=== PATIENT | female | born 1965 | race Caucasian/White ===

== ENCOUNTER 2020-12-19 16:52 | Emergency (ER) | payer OTHER, SELFPAY ==
--- NOTE | ~2020-12-19 | XR_ITS ---
EXAMINATION: RIGHT HAND CLINICAL INFORMATION: Pain and swelling COMPARISON: None TECHNIQUE: 3 views right hand FINDINGS: There is an impacted, transverse, comminuted fracture involving the distal radial metaphysis with dorsal angulation of distal fracture fragment. There is an associated fracture of the ulnar styloid. No other fractures are seen. XR/XR hand wrist RT IMPRESSION: Distal radial fracture with associated fracture of the ulnar styloid.
--- NOTE | ~2020-12-19 | XR_ITS ---
EXAMINATION: XR WRIST, RIGHT CLINICAL INFORMATION: Fracture splinted COMPARISON: Radiographs earlier today at 5:45 PM TECHNIQUE: PA, lateral, and oblique views of the right wrist. FINDINGS: Again seen is the impacted, transverse, comminuted fracture involving the distal radial metaphysis. The previously seen dorsal angulation of the distal fracture fragment appears mildly improved when compared to the prior study. The associated fracture of the ulnar styloid is again seen. A splint obscuring some detail is present. XR/XR wrist RT min 3V IMPRESSION: Redemonstration of radial and ulnar fractures status post splinting. Dorsal angulation is somewhat improved.
[2020-12-19 17:32] VITALS: BP 128/64; PULSE 59; RESP 16; TEMP 36; O2SAT 100; BMI 25.4
--- NOTE | 2020-12-19 18:20 | ED.EXTPRO ---
HPI - Extremity Problem Related Data Previous Rx's Medication Instructions Recorded oxycodone 5 mg PO Q8H PRN #10 cap 12/19/20 Allergies Allergy/AdvReac Type Severity Reaction Status Date / Time prochlorperazine Allergy Difficulty Verified 12/19/20 17:47 [From Compazine] Breathing Review of Systems Constitutional: Constitutional: Denies weight gain and Denies weight loss Cardiovascular: Cardiovascular: Reports no additional cardiovascular complaints Respiratory: Respiratory: Reports no additional respiratory complaints Gastrointestinal: Gastrointestinal: Denies abdominal pain, Denies belching, Denies melena, Denies bloating, Denies change in bowel habits, Denies dyspepsia, Denies heartburn, Denies nausea and Denies vomiting Musculoskeletal: Musculoskeletal: Reports deformity (Right wrist), Reports arthralgias, Reports joint swelling and Reports limited range of motion Neurologic: Reports system reviewed and no additional complaints, except as documented Psychiatric: Psychiatric: Reports no additional psychiatric complaints PMFSH Past Medical History Medical History (Updated 12/20/20 @ 00:00 by Background Daemsherman) COVID-19 Migraine Social History Social History Alcohol intake: never Smoked in Last 30 Days: No Use of substances other than those prescribed or required for medical reasons: No Advance Directives: No Advance Directives Information Provided: Yes Physical Exam Vital Signs: Vital Signs: Last Vital Signs Temp 98.7 F 12/19/20 22:16 Pulse 68 12/19/20 22:16 Resp 16 12/19/20 22:16 BP 122/56 L 12/19/20 22:16 Pulse Ox 98 12/19/20 22:16 Body Mass Index 25.4 Const: General: healthy appearing, no acute distress and well developed Nutritional Appearance: well nourished Orientation/consciousness: patient oriented x3 Neck: Neck: Yes normal visual inspection, Yes full ROM and Yes trachea midline Thyroid: Thyroid normal Resp: Auscultation: clear to auscultation bilaterally Cardio: Rate: regular rate Rhythm: regular rhythm GI: Inspection: Yes normal to inspection and No distended Palpation (GI): No hepatosplenomegaly present Auscultation: normal bowel sounds Skin: General skin exam: elasticity normal, turgor normal and dry skin Neuro: General: patient oriented x3 Extrem: Right upper extremity: edema and wrist (Swelling) Left upper extremity: normal capillary refill Course Course Course Narrative: Old female is here today after slipping and falling onto her right wrist. Patient unable to move her wrist. Will obtain x-ray in depending on results. Most likely fractured, will reduce fracture and sent her to see an orthopedic surgeon. Reevaluation(s) Reevaluation #1: Right wrist x-ray shows: There is an impacted, transverse, comminuted fracture involving the distal radial metaphysis with dorsal angulation of distal fracture fragment. There is an associated fracture of the ulnar styloid. No other fractures are seen. Spoke with Dr. Sun, we will reduce the fracture using Divehi traction. Patient medicated for pain. Reevaluation #2: Fracture reduced, right wrist splint using sugar tong splint. Post reduction x-rays done , improved reduction. Will send patient to see ortho. Patient is agreeable to plan of care and verbalizes understanding of instructions. She was given the opportunity to ask questions and all questions answered. Procedures Orthopedic Fracture Reduction Fracture #1: Side: right Fracture Reduction Location: other (Wrist) Analgesia: other (Oxycodone) Technique: finger traps Post Reduction X-rays Demonstrate: acceptable reduction Post-reduction neuro exam: intact Post-reduction vascular exam: intact Splint Applied: Yes Patient Tolerated Procedure: well Orthopedic Splinting/Casting Injury #1: Side: right Upper Extremity Injury Location: wrist Upper Extremity Immobilizer: sugar tong splint MDM - Extremity (Nontraumatic) Imaging Data Right hand, wrist x-ray: Radiologist's impression: FINDINGS: There is an impacted, transverse, comminuted fracture involving the distal radial metaphysis with dorsal angulation of distal fracture fragment. There is an associated fracture of the ulnar styloid. No other fractures are seen. Post reduction wrist x-ray: Radiologist's impression: FINDINGS: Again seen is the impacted, transverse, comminuted fracture involving the distal radial metaphysis. The previously seen dorsal angulation of the distal fracture fragment appears mildly improved when compared to the prior study. The associated fracture of the ulnar styloid is again seen. A splint obscuring some detail is present. Discharge Plan Discharge Clinical Impression: Fracture of wrist Patient Disposition: Home, Self-Care Instructions: Wrist Fracture in Adults (ED), Closed Reduction (ED) Additional Instructions: You were seen here today for R wrist fracture. Follow-up with orthopedic services on Wednesday. Telephone [phone]. Your fracture was reduced. Please keep your arm elevated in the sling. Apply ice. Observe your fingers for swelling or discoloration. You may return to emergency room if you will experience worsening pain, swelling. Follow-up with your primary care doctor in 5 days Prescriptions: New oxycodone 5 mg capsule 5 mg PO Q8H PRN (Reason: pain) Qty: 10 RF: 0 Interventions: ED Discharge Assessment Last Done: 12/19/20 22:17 Discharge Date/Time: 12/19/20 22:00
[2020-12-19] MEDS: Morphine Sulfate 4 MG/ML CARTRIDGE IM ×2 (18:41→21:44)
[2020-12-19] MEDS: Lidocaine HCl 2 % MPF 5 ML VIAL INFILTRATI (18:53)
--- NOTE | 2020-12-19 19:51 | PC.NURSE ---
PT RIGHT WRIST PLACE IN FINGER TRACTION WEIGHT ADDED WRIST AREA NUMBED BY DR. SKELTON.
[2020-12-19] MEDS: oxyCODONE HCl Immed Release 5 MG TABLET PO (21:01)
--- NOTE | 2020-12-19 21:07 | PC.NURSE ---
Patient medicated with Oxycodone 5mg PO for 7 out of 10 pain to right arm. Sheyla Schwab,[employer] at bedside speaking with patient. Awaiting discharge paperwork at this time.
--- NOTE | 2020-12-19 21:36 | PC.NURSE ---
Provider ordering additional medications prior to discharge. MICHAELA Vang aware.
[2020-12-19 22:16] VITALS: BP 122/56; PULSE 68; RESP 16; TEMP 37.1; O2SAT 98
--- NOTE | 2020-12-19 22:16 | PC.NURSE ---
PT LEFT REDUCED AT BESIDE BY BEAU CASTRO AND DR SKELTON. SUGAR TONE PLACED BY DR SKELTON.
== END 2020-12-19 22:00 | disposition home or self-care (01) ==
PROVIDERS: Emergency Provider Internal Medicine; PCP Family Medicine
DX: S69.91XA Unspecified injury of right wrist, hand and finger(s), initial encounter (principal); M25.531 Pain in right wrist; W19.XXXA Unspecified fall, initial encounter; Y93.9 Activity, unspecified; Y92.9 Unspecified place or not applicable; Y99.9 Unspecified external cause status
CPT/HCPCS: 29125; 73110; 73130; 96372; 99284; J2270